=== PATIENT | male | born 1955 | race Caucasian/White ===

== ENCOUNTER 2017-08-11 09:34 | Day surgery (SDC) | payer OTHER ==
[~2017-08-11] VITALS: Ht 172.7 cm; Wt 75.8 kg
[~2017-08-11 09:34] MED LIST: CYCL10 PO; Diovan40 MG; HYDACE5 PO; RXCYCL10 PO; RXHYDACE PO
[2017-08-11] MEDS ORDERED: ASPI81CH PO (10:34)
== END 2017-08-11 11:27 | disposition home or self-care (01) ==
LOC: ORSCSDS 09:34
PROVIDERS: Surgery
PROC: 0DBP8ZX Excision of Rectum, Via Natural or Artificial Opening Endoscopic, Diagnostic (ICD-10-PCS; principal; 2017-08-11 11:00)
DX: Z12.11 Encounter for screening for malignant neoplasm of colon (principal); K62.1 Rectal polyp; Z86.010 Personal history of colon polyps; E78.5 Hyperlipidemia, unspecified; Z79.82 Long term (current) use of aspirin; Z79.899 Other long term (current) drug therapy
CPT/HCPCS: 88305; J7120